=== PATIENT | female | born 1955 | race Caucasian/White ===

== ENCOUNTER → 2019-08-02 11:52 | Outpatient (CLI) | payer MEDICARE, SELFPAY ==
--- NOTE | ~2019-08-02 | MM_ITS ---
EXAMINATION: MM screening farrah BI w jose HISTORY: Screening mammogram TECHNIQUE: Craniocaudal and mediolateral oblique 3-D tomosynthesis images were obtained and synthetic 2-D images were generated. CAD analysis was submitted and interpreted. COMPARISON: 06/16/2018, 04/30/2017, 04/02/2016 bilateral digital screening mammogram examinations BREAST PARENCHYMAL COMPOSITION: There are scattered areas of fibroglandular density. FINDINGS: There is a 5.5 mm stable circumscribed mass in the posterior mid to upper inner left breast , unchanged since 04/02/2016, consistent with benign process.. Diagnostic left mammogram and left chalo st ultrasound examination are recommended There is no evidence of suspicious mass, calcification, or architectural distortion to suggest malignancy in either breast. There has been no suspicious interva l change. IMPRESSION: 1. No mammographic evidence of malignancy. 2. Recommend routine screening mammography in one year. BI-RADS Category 2: Benign finding(s). Reviewed, dictated and finalized at location A.
== END ==
PROVIDERS: PCP Family Medicine; Visit Provider Obstetrics & Gynecology
DX: Z12.31 Encounter for screening mammogram for malignant neoplasm of breast (principal)
CPT/HCPCS: 77063; 77067

== ENCOUNTER → 2020-08-31 09:22 | Outpatient (CLI) | payer MEDICARE, SELFPAY ==
--- NOTE | ~2020-08-31 | MM_ITS ---
EXAMINATION: MM screening farrah BI w jose HISTORY: Screening mammogram, family history of breast cancer in her mother. TECHNIQUE: Craniocaudal and mediolateral oblique 3-D tomosynthesis images were obtained and synthetic 2-D images were generated. CAD analysis was submitted and interpreted. COMPARISON: 08/02/2019, 06/16/2018, 04/30/2017 BREAST PARENCHYMAL COMPOSITION: The breasts are heterogeneously dense, which may obscure small masses . FINDINGS: There is no evidence of suspicious mass, calcification, or architectural distortion to sugg est malignancy in either breast. There has been no suspicious interval change. IMPRESSION: 1. No mammographic evidence of malignancy. 2. Recommend routine screening mammography in one year. BI-RADS Category 1: Negative Reviewed, dictated and finalized at location A.
== END ==
PROVIDERS: PCP Family Medicine; Visit Provider Obstetrics & Gynecology
DX: Z12.31 Encounter for screening mammogram for malignant neoplasm of breast (principal)
CPT/HCPCS: 77063; 77067

== ENCOUNTER → 2021-02-25 11:19 | Outpatient (CLI) | payer MEDICARE, SELFPAY ==
--- NOTE | ~2021-02-25 | DEXA_ITS ---
Bone Density Report Name: Stephani Perez Age: 65 Sex: Female Ethnicity: White Date of : 1955 Indication: postmenopausal; screening for osteoporosis; height loss; Referring Provider: Cole Fournier Study: Bone densitometry was performed. Exam Date: February 25, 2021 Accession number: [id number] Bone Density: Region BMD T-score Z-score Classification AP Spine (L1-L4) 1.059 0.1 2.0 Normal Femoral Neck (Left) 0.818 -0.3 1.4 Normal Total Hip (Left) 0.900 -0.3 1.0 Normal Femoral Neck (Right) 0.771 -0.7 0.9 Normal Total Hip (Right) 0.841 -0.8 0.5 Normal Total Hip Mean 0.871 -0.6 0.8 Normal World Health Organization criteria for BMD impression classify patients as: Normal (T-score at or above -1.0), Osteopenia (T-score between -1.0 and -2.5), or Osteoporosis (T-score at or below -2.5). 10-year Fracture Risk: FRAX not reported because: All T-scores for Spine Total, Hip Total, Femoral Neck at or above -1.0 Previous Exams: Region Exam Age BMD T-score BMD Change BMD Change Date g/cm2 vs Baseline vs Previous AP Spine(L1-L4) 02/25/2021 65 1.059 0.1 -0.029 -0.022 12/07/2018 63 1.081 0.3 -0.007 -0.053* 11/06/2014 59 1.134 0.8 0.046* -0.011 03/02/2012 56 1.146 0.9 0.058* 0.058* 09/21/2007 51 1.088 0.4 Total Hip(Left) 02/25/2021 65 0.900 -0.3 -0.043 0.008 12/07/2018 63 0.892 -0.4 -0.051* -0.032* 11/06/2014 59 0.924 -0.1 -0.019 0.005 03/02/2012 56 0.919 -0.2 -0.024 -0.024 09/21/2007 51 0.943 0.0 Total Hip(Right) 02/25/2021 65 0.841 -0.8 -0.075 -0.004 12/07/2018 63 0.845 -0.8 -0.071* -0.053* 11/06/2014 59 0.897 -0.4 -0.018 0.008 03/02/2012 56 0.890 -0.4 -0.026 -0.026 09/21/2007 51 0.916 -0.2 *Denotes significance at 95% confidence level, LSC for AP Spine = 0.022 g/cm2, LSC for Total Hip = 0.027 g/cm2 Clinical Information Provided by Patient: Has used the following medications: Vitamin D, Calcium, MTV Patient maximum height was 64.0 Menopause Age: 49 No regular weight bearing exercise Drinks caffeinated beverages Onset of menses at age 10 Number of children 1 Impression: The patient has normal bone mass. No significant bone loss was observed. Discussi
== END ==
PROVIDERS: PCP Family Medicine; Visit Provider Family Medicine
DX: Z78.0 Asymptomatic menopausal state (principal)
CPT/HCPCS: 77080

== ENCOUNTER → 2021-11-06 13:40 | Outpatient (CLI) | payer MEDICARE, SELFPAY ==
--- NOTE | ~2021-11-06 | MM_ITS ---
EXAMINATION: MM screening farrah BI w jose HISTORY: Screening mammogram, family history of breast cancer in her mother. TECHNIQUE: Craniocaudal and mediolateral oblique 3-D tomosynthesis images were obtained and synthetic 2-D images were generated. CAD analysis was submitted and interpreted. COMPARISON: 09/12/2020, 08/02/2019, 06/16/2018 BREAST PARENCHYMAL COMPOSITION: There are scattered areas of fibroglandular density. FINDINGS: There is no suspicious mass, calcification, or architectural distortion to suggest malignan cy in either breast. There has been no suspicious interval change. IMPRESSION: 1. No mammographic evidence of malignancy. 2. Recommend routine screening mammography in one year. BI-RADS Category 1: Negative Reviewed, dictated and finalized at location A.
== END ==
PROVIDERS: PCP Family Medicine; Visit Provider Obstetrics & Gynecology
DX: Z12.31 Encounter for screening mammogram for malignant neoplasm of breast (principal)
CPT/HCPCS: 77063; 77067

== ENCOUNTER 2021-12-15 00:39 | Day surgery (SDC) | payer MEDICARE, SELFPAY ==
[2021-12-15] VITALS (7 sets, daily range): BP systolic 130–145; BP diastolic 75–106; PULSE 92–122; RESP 16–18; TEMP 37; O2SAT 98–100; BMI 69.9
[2021-12-15 09:00] LABS: Basophils Absolute Auto 0.1 K/mm3 (0.0-0.1); Basophils Percent Auto 1.1 % (0.2-1.2); Eosinophils Absolute Auto 0.2 K/mm3 (0-0.3); Eosinophils Percent Auto 2.4 % (0-4.4); Hematocrit 40.5 % (37.0-47.0); Hemoglobin 13.9 g/dL (12.0-15.0); Immature Granulocyte Absolute 0.02 K/mm3 (0.00-0.031); Immature Granulocyte Percent A 0.3 % (0-0.5); Lymphocytes Absolute Auto 1.89 K/mm3 (0.9-3.2); Mean Corpuscular HGB Conc 34.3 g/dl (32-36); Mean Corpuscular Hemoglobin 30.8 pg (26-34); Mean Corpuscular Volume 89.8 fl (80-100); Mean Platelet Volume 9.7 fl (7.4-10.4); Monocytes Absolute Auto 0.6 K/mm3 (0.1-0.6); Monocytes Percent Auto 9.1 % (2.6-8.5); Neutrophils Absolute Auto 4.2 K/mm3 (1.3-6.7); Neutrophils Percent Auto 60.1 % (45.5-73.1); Platelet Count Result 280 k/mm3 (150-375); Red Blood Count 4.51 M/mm3 (4.2-5.4); Red Cell Distribution Width 13.3 % (11.5-14.5)
[2021-12-15 09:07] LABS: Prothrombin Time 13.2 Seconds (11.1-14.7)
[2021-12-15 09:19] LABS: Anion Gap 10 mmol/L (8-16); Blood Urea Nitrogen 15 mg/dL (7-17); Carbon Dioxide 23 mmol/L (22-30); Chloride 107 mmol/L (98-107); Estimated CRCL calculation 63 ml/min; Estimated Glomerular Filt Rate > 60; Glucose 112 mg/dL (65-110); Potassium 3.8 mmol/L (3.4-5.0); Sodium 140 mmol/L (137-145)
--- NOTE | 2021-12-15 11:04 | SUR.PHASEII ---
patient back in room 5, oriented to call light, c/o soreness to left shoulder due to bigger generator placed. Ice applied to shoulder and will continue to monitor. vss.
--- NOTE | 2021-12-15 11:07 | P.PCNCC_ITS ---
Cardiac Cath Procedure Note Date of procedure:: 12/15/21 Performing physician:: Esequiel Cooper MD Indication:: permanently implanted pacemaker at [facility] Brief clinical history:: this is a 66-year-old woman with a history of atrial fibrillation as well as symptomatic bradycardia with a permanently implanted pacemaker device. She on routine office follow-up has been found to be at [facility] and is admitted for pa cemaker generator change. She is anticoagulated with warfarin for atrial fib which has been stopped for 4 days prior to this is procedure. Procedure Procedure performed:: Explantation of depleted pacemaker pulse generator implantation of new pacemaker pulse generator Sedation/Medication given:: fentanyl 50 mg Versed 2 mg Access site:: chronically implanted device pocket in the left subclavian region Estimated blood loss:: minimal Procedure note:: patient was brought to the cardiac catheterization lab in the Post absorptive state where the left anterior chest wall was prepped and draped in the usual fashion. 1% lidocaine was infiltrated locally along the old incision line and using the PlasmaBlade an incision was then made along the old incision line above the palpable device. Electrocautery was used for cutaneous hemostasis. The fibrous pocket was encountered and opened with the plasma blade and Metzen ismael scissors. The depleted generator with the attached leads was then removed from the pocket and seen to be visually intact and unremarkable in appearance. The leads were disconnected from the depleted generator using the torque wrench. The leads were then connected to the new generator using the same torque wrench. The pocket was irrigated with vancomycin infused saline and the entire assembly was then placed back into the pocket. The pocket was then closed in layers using 3-0 Vicryl in interrupted fashion for the subcutaneous tissue and 4-0 Vicryl in a running subcuticular fashion for the skin. The wound was dressed with an Aquacel dressing the patient was taken to the holding area in good condition there were no apparent procedural complications. Findings:: The explanted device is a Medtronic dual-chamber pacemaker model ADDR 01 serial number [id number]. device was originally implanted February 25, 2010. The new pacemaker generator is a Medtronic dual-chamber pacemaker model W3DR01. serial number [id number]. the device is programmed in VVIR mode lower rate limit 60 upper rate limit 130. The chronically implanted atrial lead is a Medtronic bipolar lead model 5076- 45 serial number [id number]. the atrial fib is sensed at 1 mV pacing impedance 361 Ohms. The chronically implanted ventricular lead is a Feedlookstronic bipolar lead model 4092-52 serial number [id number]. the R-waves are sensed at 15.3 mV impedance 589 threshold 1.25 volts at 0.4 millisecond Conclusion:: 1. successful uncomplicated explantation of depleted dual-chamber pulse generator 2. successful implantation of new dual-chamber pulse generator as described above 3. chronically implanted leads are functioning well as detailed above Esequiel Cooper MD FACC
--- NOTE | 2021-12-15 11:36 | SUR.PHASEII ---
dr bhatia in speaking with patient with at bedside. pacemaker rep programing patient's phone to respond to new generator
--- NOTE | 2021-12-15 11:50 | SUR.PHASEII ---
patient eating lunch. states her shoulder feels much better.
--- NOTE | 2021-12-15 12:10 | SUR.PHASEII ---
iv d/c tip intact. patient discharge instructions given with at bedside. went over dressing and wound care/follow up in office next week and/ holding coumadin until f/u along with discharge education. patient verbalized understanding and all questions and concerns address. patient able to change in to clothes and ambulate around room with out difficulty. patient taken via wheel chair to personal vehicle where will drive her home.
== END 2021-12-15 12:15 | disposition home or self-care (01) ==
PROVIDERS: PCP Family Medicine; Visit Provider Specialist
PROC: 0JPT0PZ Removal of Cardiac Rhythm Related Device from Trunk Subcutaneous Tissue and Fascia, Open Approach (ICD-10-PCS; CPT 33228; principal; 2021-12-15 10:00)
DX: Z45.010 Encounter for checking and testing of cardiac pacemaker pulse generator [battery] (principal); I48.91 Unspecified atrial fibrillation; Z79.01 Long term (current) use of anticoagulants; Z79.82 Long term (current) use of aspirin; I49.5 Sick sinus syndrome
CPT/HCPCS: 33228; 36415; 80048; 85025; 85610; C1785; J2250; J3010; J3370; J7040

== ENCOUNTER → 2023-01-27 14:41 | Outpatient (CLI) | payer MEDICARE, SELFPAY ==
--- NOTE | ~2023-01-27 | MM_ITS ---
EXAMINATION: MM screening farrah BI w jose HISTORY: Screening mammogram, family history of breast cancer in her mother. TECHNIQUE: Craniocaudal and mediolateral oblique 3-D tomosynthesis images were obtained and synthetic 2-D images were generated. CAD analysis was submitted and interpreted. COMPARISON: 11/06/2021, 08/31/2020, 08/02/2019 BREAST PARENCHYMAL COMPOSITION: There are scattered areas of fibroglandular density. FINDINGS: No suspicious mass, calcification, or architectural distortion are identified in either diamond ast to suggest malignancy. There has been no suspicious interval change. IMPRESSION: 1. No mammographic evidence of malignancy. 2. Recommend routine screening mammography in one year. BI-RADS Category 1: Negative Reviewed, dictated and finalized at location A.
== END ==
PROVIDERS: PCP Obstetrics & Gynecology; Visit Provider Obstetrics & Gynecology
DX: Z12.31 Encounter for screening mammogram for malignant neoplasm of breast (principal)
CPT/HCPCS: 77063; 77067

== ENCOUNTER 2024-01-31 10:46 | Outpatient (CLI) | payer MEDICARE, SELFPAY ==
--- NOTE | ~2024-01-31 | MM_ITS ---
EXAMINATION: MM screening farrah BI w jose HISTORY: Screening TECHNIQUE: Craniocaudal and mediolateral oblique 3-D tomosynthesis images were obtained and synthetic 2-D images were generated. CAD analysis was submitted and interpreted. COMPARISON: Comparison to multiple prior studies sequentially, with oldest reviewed study dated 08/2017. BREAST PARENCHYMAL COMPOSITION: Not dense: There are scattered areas of fibroglandular density... FINDINGS: There is no evidence of suspicious mass, calcification, or architectural distortion to sugg est malignancy in either breast. There has been no suspicious interval change. IMPRESSION: 1. No mammographic evidence of malignancy. 2. Recommend routine screening mammography in one year. BI-RADS Category 1: Negative Reviewed, dictated and finalized at location B.
== END 2024-01-31 10:47 | disposition home or self-care (01) ==
LOC: MICIMG 10:47
PROVIDERS: PCP Family Medicine; Visit Provider Nurse Practitioner Obstetrics & Gynecology
DX: Z12.31 Encounter for screening mammogram for malignant neoplasm of breast (principal)
CPT/HCPCS: 77063; 77067

== ENCOUNTER 2025-02-01 10:27 | Outpatient (CLI) | payer MEDICARE, SELFPAY ==
--- NOTE | ~2025-02-01 | MM_ITS ---
EXAMINATION: MM screening farrah BI w jose HISTORY: Screening TECHNIQUE: Craniocaudal and mediolateral oblique 3-D tomosynthesis images were obtained and synthetic 2-D images were generated. CAD analysis was submitted and interpreted. COMPARISON: Comparison to multiple prior studies sequentially, with oldest reviewed study dated , 06/16/2018 BREAST PARENCHYMAL COMPOSITION: There are scattered areas of fibroglandular density. FINDINGS: There is no evidence of suspicious mass, calcification, or architectural distortion to suggest malignancy in either breast. IMPRESSION: 1. No mammographic evidence of malignancy. 2. Recommend routine screening mammography in one year. BI-RADS Category 1: Negative Reviewed, dictated and finalized at location B.
== END 2025-02-01 10:28 | disposition home or self-care (01) ==
LOC: MICIMG 10:31
PROVIDERS: PCP Family Medicine; Visit Provider Nurse Practitioner Obstetrics & Gynecology
DX: Z12.31 Encounter for screening mammogram for malignant neoplasm of breast (principal)
CPT/HCPCS: 77063; 77067

== ENCOUNTER 2025-03-29 16:12 | Emergency (ER) | payer MEDICARE, SELFPAY ==
[2025-03-29] VITALS (7 sets, daily range): BP systolic 123–135; BP diastolic 67–98; PULSE 95–130; RESP 12–23; TEMP 36.8–37.1; O2SAT 97–100
--- NOTE | ~2025-03-29 | XR_ITS ---
EXAMINATION: XR chest 2V, 03/29/2025 16:33 [employer] HISTORY: arrhythmia, chest pain COMPARISON: No comparisons available. Technique: 2 views obtained. Findings: Moderate pulmonary venous congestion. Scattered small infiltrates. No pneumothorax. Moderate cardiomegaly. Mediastinal and hilar contours are within normal limits. Poststernotomy. Left pacemaker. Impression: CHF. Superimposed probable pneumonia. Reviewed, dictated and finalized at location P. [employer] Impression: CHF. Superimposed probable pneumonia.
--- NOTE | 2025-03-29 16:16 | ECG_ITS ---
Test Date: 2025-03-29 16:24:57 Measurements Intervals [place] Rate: 145 P: 0 TN: 0 QRS: 172 QRSD: 97 T: -14 QT: 284 QTc: 442 Interpretive Statements ATRIAL FIBRILLATION WITH RAPID VENTRICULAR RESPONSE INCOMPLETE RIGHT BUNDLE BRANCH BLOCK PATTERN CONSISTENT WITH PULMONARY DISEASE HIGH LATERAL INFARCT, AGE INDETERMINATE BORDERLINE ST-T WAVE ABNORMALITY- INFERIOR LEADS BASELINE ARTIFACT- I, III, AVR, AVL, AVF, V1, V5 ABNORMAL ECG No previous ECG available for comparison Electronically Signed On 03-29-2025 16:36:03 [employer] by Tony Granados D.O.
[2025-03-29 17:42] LABS: Hematocrit 39.3 % (37.0-47.0); Hemoglobin 13.1 g/dL (12.0-15.0); Immature Granulocyte Percent A 0.4 % (0-0.5); Lymphocytes Absolute Auto 1.51 K/mm3 (0.9-3.2); Mean Corpuscular HGB Conc 33.3 g/dl (32-36); Mean Corpuscular Hemoglobin 30.4 pg (26-34); Mean Corpuscular Volume 91.2 fl (80-100); Nucleated Red Blood Cells Absolute Auto 0.000 K/mm3 (0.0-0.012); Nucleated Red Blood Cells Perc 0.0 % (0.0-0.2); Platelet Count Result 280 k/mm3 (150-375); Red Blood Count 4.31 M/mm3 (4.2-5.4); White Blood Count 12.9 K/mm3 (4.5-10.0)
--- NOTE | 2025-03-29 17:51 | ED.ARRPALP ---
HPI - Arrhythmia/Palpitations General Chief Complaint: Arrhythmia/Palpitations Stated Complaint: afib, palpitations, sent from urgent care Time Seen by Provider: 03/29/25 17:41 History of Present Illness HPI narrative: Patient is a 69-year-old female who presents to the ER with an upper respiratory infection that started on Wednesday, 5 days ago. She endorses congestion, headache, cough, and wheezing. Patient denies any recent fevers, chest pain, or acute back pain. She endorses a history of atrial fibrillation and a pacemaker. Patient reports she has been on warfarin since 2009. She also takes metoprolol for her chronic atrial fibrillation. Patient reports she went to urgent care earlier today where they did x-ray and diagnosed her with pneumonia. Related Data Home Medications ?Medication ?Instructions ?Recorded ?Confirmed ?Last Taken ?Type calcium 600 mg (as 1 cap PO DAILY 06/27/19 11/17/24 12/14/21 History carbonate)-vitamin D3 12.5 mcg (500 unit) capsule (Calcium with Vit D3) digoxin 125 mcg (0.125 mg) tablet 125 mcg PO DAILY 06/27/19 11/17/24 12/14/21 History metoprolol succinate 100 mg 100 mg PO DAILY 06/27/19 11/17/24 12/14/21 History tablet,extended release 24 hr warfarin 2 mg tablet 6 mg PO .6XW 06/27/19 11/17/24 12/11/21 History Held on 12/15/21. Instructions: Hold until further notice multivitamin (Daily Multi-Vitamin 1 tablet PO DAILY 02/01/20 11/17/24 12/14/21 History tablet) omega 7-bjf-hoa-fish oil 60 mg-90 1 cap PO DAILY 10/16/24 11/17/24 Unknown History mg-500 mg capsule (Fish Oil) Allergies Allergy/AdvReac Type Severity Reaction Status Date / Time Penicillins Allergy Intermediate Swelling Verified 11/17/24 14:27 Review of Systems Review of Systems: All systems reviewed & are unremarkable except as noted in HPI and below PMFSH Past Medical History Medical History Obesity Carpal tunnel syndrome on both sides History of vaginal delivery Allergic rhinitis Current use of meterman anticoagulation Gout Afib Surgical History Surgical History History of open heart surgery History of endometrial ablation History of dilation and curettage Pacemaker History of tonsillectomy Family History Family History Grandparent Diabetes mellitus, Onset Age: 70 Father Family history of coronary artery disease Pancreatic cancer Mother Family history of malignant neoplasm of breast in first degree relative Family history of malignant neoplasm of ovary Social History Social History Smoking packs per day: 1 Smoking cigarettes per day: 20.0 Years smoked: 15 Smoking pack-years: 15.00 Smoking status: Former smoker Tobacco type: cigarettes Second hand tobacco smoke exposure: No Smoking end date: 04/26/87 Alcohol intake: current Drinks per week: 1 Substance use: never Substance use type: does not use Living arrangements: with family Occupation/Education: retired 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 HEAD: Normocephalic, atraumatic. NECK: Supple. No adenopathy, no masses. RESPIRATORY: Airway patent, respirations nonlabored. Clear to auscultation bilaterally, no rales, rhonchi, wheezing. CARDIOVASCULAR: Irregular rate without murmurs, rubs, or gallops. Peripheral pulses 2+ and equal bilaterally. ABDOMINAL: Soft, nontender, nondistended, no hepatosplenomegaly. Normoactive BS. MUSCULOSKELETAL: Moves all extremities. Strength/ROM intact without gross deformities. SKIN: Warm, dry, normal color. No rashes. NEURO: A&O X3. Speech clear. Cranial nerves II-XII intact. No ataxic movements. PSYCHIATRIC: Appropriate mood and affect. Normal interaction. Course Vital Signs Vital signs: Vital Signs Temperature 37.1 C 03/29/25 16:19 Pulse Rate 130 H 03/29/25 16:19 Respiratory Rate 20 03/29/25 16:19 Blood Pressure 135/81 03/29/25 16:19 Pulse Oximetry 97 03/29/25 16:19 Oxygen Delivery Room Air 03/29/25 16:19 Temperature 36.9 C 03/29/25 19:30 Pulse Rate 95 03/29/25 19:30 Respiratory Rate 20 03/29/25 19:30 Blood Pressure 131/67 03/29/25 19:30 Pulse Oximetry 99 03/29/25 19:30 Oxygen Delivery Room Air 03/29/25 16:19 [facility] MDM Narrative Medical decision making narrative: Patient is a 69-year-old female who presents to the ER with an upper respiratory infection that started on Wednesday, 5 days ago. She endorses congestion, headache, cough, and wheezing. Patient denies any recent fevers, chest pain, or acute back pain. She endorses a history of atrial fibrillation and a pacemaker. Patient reports she has been on warfarin since 2009. She also takes metoprolol for her chronic atrial fibrillation. Patient reports she went to urgent care earlier today where they did x-ray and diagnosed her with pneumonia. Labs Ordered: CBC, CMP, lactic acid, INR, PTT, COVID/flu/RSV, troponin, CRP Imaging Ordered: Chest x-ray Medications Ordered: 1 L normal saline IV bolus, metoprolol 5 mg IV, Levaquin IV, Tylenol p.o., DuoNeb Results: Pt's chest x-ray indicates Moderate pulmonary venous congestion. Scattered small infiltrates. No pneumothorax. Moderate cardiomegaly. Mediastinal and hilar contours are within normal limits. Poststernotomy. Left pacemaker. Impression: CHF. Superimposed probable pneumonia. Diagnosis: community acquired pneumonia, history atrial fibrillation Patient Education/Shared MDM: Results of lab work and imaging shared with patient. Patient endorses improvement of symptoms following medication administration. She will be given her 1st dose of antibiotics here in the ER to treat her pneumonia. Patient strongly advised to maintain hydration status upon discharge and follow-up with her PCP in the next 2-3 days to ensure she is healing. She will be discharged home with a prescription for a Medrol Dosepak, albuterol inhaler, and Doxycycline and Azithromycin p.o. Strict return precautions provided. Patient verbalized understanding and is in agreement with plan. Vital signs stable at time of discharge. All questions answered. Differential Diagnosis Differential Diagnosis: Pneumonia, CHF, atrial fibrillation Lab Data [facility] Lab Attestation statement: I personally reviewed the patient's lab results. 03/29/25 17:36 03/29/25 17:36 Labs: Lab Results 03/29/25 03/29/25 Range/Units 17:36 18:41 WBC 12.9 H (4.5-10.0) K/mm3 RBC 4.31 (4.2-5.4) M/mm3 Hgb 13.1 (12.0-15.0) g/dL Hct 39.3 (37.0-47.0) % MCV 91.2 (80-100) fl MCH 30.4 (26-34) pg MCHC 33.3 (32-36) g/dl RDW 13.1 (11.5-14.5) % Plt Count 280 (150-375) k/mm3 MPV 8.9 (7.4-10.4) fl Immature Gran % (Auto) 0.4 (0-0.5) % Neut % (Auto) 77.7 H (45.5-73.1) % Lymph % (Auto) 11.7 L (18.3-44.2) % [place] % (Auto) 9.4 H (2.6-8.5) % Eos % (Auto) 0.3 (0-4.4) % Baso % (Auto) 0.5 (0.2-1.2) % Lymph # (Auto) 1.51 (0.9-3.2) K/mm3 [place] # (Auto) 1.2 H (0.1-0.6) K/mm3 Eos # (Auto) 0.0 (0-0.3) K/mm3 Baso # (Auto) 0.1 (0.0-0.1) K/mm3 Abs Immat Gran (auto) 0.05 H (0.00-0.031) K/mm3 Absolute Neuts (auto) 10.0 H (1.3-6.7) K/mm3 Absolute Nucleated RBC 0.000 (0.0-0.012) K/mm3 Nucleated RBC % 0.0 (0.0-0.2) % PT 19.6 H (11.1-14.7) Seconds INR 1.7 APTT 44.3 H (22.3-36.8) Seconds Sodium 136 L (137-145) mmol/L Potassium 4.0 (3.4-5.0) mmol/L Chloride 104 (98-107) mmol/L Carbon Dioxide 25 (22-30) mmol/L Anion Gap 7 (4-12) mmol/L BUN 11 (7-17) mg/dL Creatinine 0.88 (0.7-1.0) mg/dL Estim Creat Clear Calc 54 ml/min Estimated GFR > 60 (59 - ) Glucose 102 (65-110) mg/dL Lactic Acid 0.9 (0.7-2.0) mmol/L Calcium 9.3 (8.4-10.2) mg/dL Total Bilirubin 1.2 (0.2-1.3) mg/dL AST 44 H (14-36) U/L ALT 30 (6-35) U/L Alkaline Phosphatase 86 (38-126) U/L Troponin I < 0.012 (0.000-0.034) ng/mL C-Reactive Protein 30.1 H (<1.0) mg/dL NT-Pro-B Natriuret Pep 948 H (19.9-100) pg/mL Total Protein 7.7 (6.3-8.2) g/dL Albumin 4.4 (3.5-5.1) g/dL Lipase 78 (23-300) U/L Influenza A (RT-PCR) Negative (Negative) Influenza B (RT-PCR) Negative (Negative) RSV (RT-PCR) Negative (Negative) SARS-CoV-2 RNA (RT-PCR) Negative (Negative) Imaging Data Attestation: I personally reviewed and interpreted this imaging study as follows: Radiologist's impression: ITS Impressions Chest X-Ray 03/29/25 16:45 Impression: CHF. Superimposed probable pneumonia. Discharge Plan Discharge Clinical Impression: Community acquired pneumonia, Atrial fibrillation, Current use of meterman anticoagulation Patient Disposition: Home Condition: Stable Instructions: Antibiotic Form, Community Acquired Pneumonia (ED) Additional Instructions: Please return to the ER with any worsening symptoms. Follow-up with primary care provider in the next 2-3 days to ensure you are healing. Take all medications as prescribed, including regularly scheduled medications. Complete your full dose of both antibiotics. Patient Language: Indonesian Prescriptions: New methylprednisolone [Medrol (Hemant)] 4 mg tablets,dose pack See Rx Instructions .ROUTE .COMPLEX Qty: 21 0RF Rx Instructions: for 6 days albuterol sulfate 90 mcg/actuation aerosol powdr breath activated 2 inh inhalation Q6H PRN (Reason: shortness of breath or wheezing) Qty: 1 0RF azithromycin 250 mg tablet See Rx Instructions .ROUTE .COMPLEX Qty: 6 0RF Rx Instructions: For 250 mg dose pack: take 500 mg today (day 1), then 250 mg for 4 days (days 2-5) doxycycline monohydrate 100 mg capsule 100 mg PO BID Qty: 14 0RF No Action multivitamin [Daily Multi-Vitamin] Tablet 1 tablet PO DAILY omega 9-bgu-lof-fish oil [Fish Oil] 60-90-500 mg capsule 1 cap PO DAILY methylprednisolone [Medrol (Hemant)] 4 mg tablets,dose pack See Rx Instructions PO PER PKG DIR Qty: 21 0RF Rx Instructions: PO PER PKG DIR for 6 days digoxin 125 mcg (0.125 mg) tablet 125 mcg PO DAILY metoprolol succinate 100 mg tablet extended release 24 hr 100 mg PO DAILY warfarin 2 mg tablet 6 mg PO .6XW Rx Instructions: 6mg 6x a week, 8mg 1x a week calcium carbonate-vitamin D3 [Calcium 600 with Vitamin D3] 600 mg(1,500mg) -500 unit capsule 1 cap PO DAILY colchicine 0.6 mg tablet 0.6 mg PO DAILY Qty: 90 1RF Zepbound 2.5 mg/0.5 mL pen injector 2.5 mg subcut WEEKLY Qty: 2 0RF Rx Instructions: for 4 weeks benzonatate 100 mg capsule 200 mg PO TID PRN (Reason: cough) Qty: 60 0RF ipratropium bromide 21 mcg (0.03 %) spray,non-aerosol 2 spray intranasal BID Qty: 30 0RF Rx Instructions: administer into each nostril Follow-up/Referrals: Cole Fournier MD [Primary Care Provider, Family Practice] Time of Disposition: 20:11
[2025-03-29 17:56] LABS: INR 1.7; Prothrombin Time 19.6 Seconds (11.1-14.7)
[2025-03-29 17:57] LABS: Partial Thromboplastin Time 44.3 Seconds (22.3-36.8)
[2025-03-29 18:00] LABS: Alanine Aminotransferase 30 U/L (6-35); Albumin Level 4.4 g/dL (3.5-5.1); Alkaline Phosphatase 86 U/L (38-126); Anion Gap 7 mmol/L (4-12); Aspartate Amino Transferase 44 U/L (14-36); Bilirubin,Total 1.2 mg/dL (0.2-1.3); Blood Urea Nitrogen 11 mg/dL (7-17); Calcium 9.3 mg/dL (8.4-10.2); Carbon Dioxide 25 mmol/L (22-30); Chloride 104 mmol/L (98-107); Estimated CRCL calculation 54 ml/min; Estimated Glomerular Filt Rate > 60; Glucose 102 mg/dL (65-110); Lipase 78 U/L (23-300); Potassium 4.0 mmol/L (3.4-5.0); Sodium 136 mmol/L (137-145); Total Protein 7.7 g/dL (6.3-8.2)
[2025-03-29 18:06] LABS: Troponin I < 0.012 ng/mL (0.000-0.034)
[2025-03-29 18:22] LABS: NT Pro B Type Natriuretic Pept 948 pg/mL (19.9-100)
[2025-03-29] MEDS: IPRATROPIUM 0.5 MG/ALBUTEROL SULFATE 2.5 MG (BASE) AMPUL.NEB 3 ML INHALATION (18:48)
[2025-03-29] MEDS: METOPROLOL TARTRATE INJ 5 MG/5 ML VIAL IV PUSH (18:55)
[2025-03-29] MEDS: levoFLOXacin 750 MG/D5W 150 ML 750 MG/150 ML BAG 100 MG IVPB (18:56)
[2025-03-29] MEDS: SODIUM CHLORIDE 0.9% IV 1,000 ML 999 ML IV CONT (18:56)
[2025-03-29 19:05] LABS: CRP 30.1 mg/dL (<1.0)
[2025-03-29 19:27] LABS: Influenza A QL RT-PCR Negative (Negative); Influenza B QL RT-PCR Negative (Negative); RSV RNA, RT-PCR Negative (Negative); SARS-CoV-2 RNA PCR Negative (Negative)
[2025-03-29] MEDS: ACETAMINOPHEN 500 MG TABLET 1000 MG PO (19:28)
== END 2025-03-29 20:39 | disposition home or self-care (01) ==
PROVIDERS: Emergency Medicine; Emergency Provider Registered Nurse; PCP Family Medicine
DX: J18.9 Pneumonia, unspecified organism (principal); Z20.822 Contact with and (suspected) exposure to COVID-19; I48.20 Chronic atrial fibrillation, unspecified; Z79.01 Long term (current) use of anticoagulants; Z87.891 Personal history of nicotine dependence
CPT/HCPCS: 36415; 71046; 80053; 83605; 83690; 83880; 84484; 85025; 85610; 85730; 86140; 87637; 93005; 94640; 96365; 96375; 99284; A9270; J0616; J1956; J7030